=== PATIENT | female | born 1990 | race African-American/Black ===

== ENCOUNTER 2022-11-23 15:12 | Emergency (ER) | payer SELFPAY ==
[~2022-11-23] VITALS: Ht 167.6 cm; Wt 89.0 kg
[2022-11-23 17:03] VITALS: BP 126/69
== END 2022-11-23 18:55 | disposition left against medical advice (07) ==
LOC: ER 15:23
DX: Z53.21 Procedure and treatment not carried out due to patient leaving prior to being seen by health care provider (principal); I10 Essential (primary) hypertension; G43.901 Migraine, unspecified, not intractable, with status migrainosus
CPT/HCPCS: 99281